=== PATIENT | male | born 1940 | race Hispanic/Latino ===

== ENCOUNTER 2017-03-12 11:04 | Observation (INO) | payer MEDICARE, OTHER ==
--- NOTE | 2017-03-10 12:18 | Anesthesia Consultation ---
Anesthesia Consult and Med Hx Date of service: 03/10/17 - Airway Anesthetic Teeth Evaluation: Good ROM Head & Neck: Adequate Mental/Hyoid Distance: Adequate Mallampati Class: Class II Intubation Access Assessment: Probably Good - Pulmonary Exam CTA: Yes - Cardiac Exam Cardiac Exam: RRR - Pre-Operative Health Status ASA Pre-Surgery Classification: ASA2 Proposed Anesthetic Plan: General - Pulmonary Hx Smoking: No Hx Asthma: No COPD: No Hx Sleep Apnea: No (DWAYNE PRE SCREEN LOW RISK) - Cardiovascular System Hx Hypertension: No Hx Heart Attack/AMI: No - Central Nervous System Hx Seizures: No - Endocrine Hx Renal Disease: No Hx Liver Disease: No Hx Non-Insulin Dependent Diabetes: No - Hematic Hx Sickle Cell Disease: No - Other Systems Hx Cancer: Yes (bladder ca, removed)
[2017-03-10 12:19] LABS: Basophils % (Auto) 1.1 % (0.0-1.8); Eosinophils % (Auto) 1.2 % (0.0-4.3); Hematocrit 44.3 % (35.5-45.6); Mean Corpuscular HGB Conc 34 % (32-34); Mean Corpuscular Hemoglobin 30 pg (28-32); Mean Corpuscular Volume 90 fl (84-94); Platelet Count 191 K/mm3 (140-440); Red Blood Count 4.95 M/mm3 (3.65-5.03); Red Cell Distribution Width 13.5 % (13.2-15.2)
[2017-03-10 12:29] LABS: INR 0.95 (0.87-1.13)
[2017-03-10 12:38] LABS: Alanine Aminotransferase 18 units/L (7-56); Albumin 3.8 g/dL (3.9-5); Albumin/Globulin Ratio 1.2 %; Alkaline Phosphatase 68 units/L (35-129); Anion Gap 16 mmol/L; Blood Urea Nitrogen 11 mg/dL (9-20); Calcium 9.1 mg/dL (8.4-10.2); Carbon Dioxide 24 mmol/L (22-30); Chloride 99.9 mmol/L (98-107); Glucose 176 mg/dL (75-100); Potassium 4.3 mmol/L (3.6-5.0); Sodium 136 mmol/L (137-145)
[~2017-03-12 11:04] MED LIST: ANCEF/STERILE WATER 2 GM/20 ML 2 GM/20 ML SYRINGE IV NR; NACL 0.9% 1000 ML 1,000 ML IV SCH; NACL 0.9% IR ONE; PEPCID IV NR; SORBITOL-MANNITOL IRRIG IR ONE; WATER FOR IRRIG STERILE IR ONE
[2017-03-12] MEDS ORDERED: DIPRIVAN 10 MG/ML IV ONE (12:18)
[2017-03-12] MEDS ORDERED: SUBLIMAZE ONE (12:18)
[2017-03-12] MEDS ORDERED: XYLOCAINE MPF 2% ONE (12:21)
[2017-03-12] MEDS ORDERED: ROBINUL ONE (12:25)
[2017-03-12] MEDS ORDERED: VERSED ONE (12:30)
[2017-03-12] MEDS ORDERED: SORBITOL-MANNITOL IRRIG IR ONE (12:34)
[2017-03-12] MEDS ORDERED: NACL 0.9% IR ONE (12:43)
[2017-03-12] MEDS ORDERED: WATER FOR IRRIG STERILE IR ONE (12:43)
[2017-03-12] MEDS ORDERED: ZOFRAN ONE (13:00)
[2017-03-12] MEDS ORDERED: AMBIEN PO PRN (13:07)
[2017-03-12] MEDS ORDERED: ZOFRAN IV PRN (13:07)
[2017-03-12] MEDS ORDERED: TYLENOL PO PRN (13:07)
[2017-03-12] MEDS ORDERED: PERCOCET 5/325 PO PRN (13:07)
--- NOTE | 2017-03-12 13:17 | Post Operative Note ---
Date of procedure: 03/12/17 Pre-op diagnosis: urinary retention Post-op diagnosis: same Findings: Inflammatory changes with prominent middle lobe prostate Procedure: Operative note Preoperative diagnosis urinary retention large prostate Postoperative diagnosis same with apparent inflammatory polyps Procedure cystoscopy transurethral resection of the prostate Surgeon Dr. Rodriguez anesthesia Gen. Findings as above Procedure This is a gentleman with recurrent urinary retention Patient was brought the operating room placed in the operating table. Following induction of general anesthesia present on the position and prepped and draped in usual sterile fashion. Cystoscopy showed bladder outlet obstruction 1-2+ trabeculated bladder and polypoid area on the right side of the prostatic urethra. The resectoscope was then placed and resection circumferentially was carried out first of the middle lobe and then circumferentially starting on the left left lobe and going to the right lobe. Hemostasis was excellent. Patient received well we used the loop and the ball for hemostasis. Once we were sure that all the chips were evacuated out and that hemostasis was good a three-way 24 Upper [place] catheter was placed . Patient tolerated procedure well Minimal blood loss less than 50-100 mL he was brought to recovery room in stable condition Reese drip draining clear Anesthesia: GETA Surgeon: SANGITA RODRIGUEZ Estimated blood loss: 50-100ml Pathology: list (prostate) Specimen disposition: to lab Condition: stable Disposition: PACU
--- NOTE | 2017-03-12 14:04 | Post Anesthesia Evaluation ---
- Post Anesthesia Evaluation Patient Participated: Yes Airway Patent: Yes Stable Respiratory Function: Yes Temp > 96.8F: Yes Pain Manageable: Yes Adequeate Hydration: Yes Anesthesia Complications: No Block Receding Appropriately: Not Applicable
--- NOTE | 2017-03-12 14:04 | Anesthesia Day of Surgery ---
Anesthesia Day of Surgery - Day of Surgery Patient Examined: Yes Patient H&P Reviewed: Yes Patient is NPO: Yes
[2017-03-12] MEDS: D5W/0.45% NACL/KCL 20 MEQ 20 MEQ/1,000 ML BAG IV SCH ×2 (14:52→22:52)
[2017-03-12] MEDS ORDERED: FLOMAX PO SCH (18:00)
[2017-03-12] MEDS ORDERED: NACL 0.9% 1,000 ML IR ONE (18:02)
[2017-03-12] MEDS: DIABETA PO SCH (19:25)
[2017-03-12] MEDS: NACL 0.9% IR SCH ×2 (21:00→22:53)
[2017-03-12] MEDS: COLACE PO SCH (22:00)
[2017-03-12] MEDS ORDERED: GLYBURIDE 10 MG PO SCH (22:00)
[2017-03-12] MEDS: ANCEF/NS 1 GM/50 ML 1 GM/50 ML BAG IV SCH (22:00)
[2017-03-13] MEDS: NACL 0.9% IR SCH ×2 (00:30→04:03)
[2017-03-13] MEDS: ANCEF/NS 1 GM/50 ML 1 GM/50 ML BAG IV SCH ×2 (04:02→12:07)
--- NOTE | 2017-03-13 07:37 | Admit Criteria Form ---
Admission Criteria Documentation: AMBULATORY SURGERY EXCEPTION CRITERIA Ambulatory Surgery Exception Criteria ( Place 'X' for any and all applicable criteria): Surgery or procedure performed on ambulatory basis may require inpatient stay for[A] ANY ONE of the following(1)(2)(3)(4)(5)(6)(7)(8)(9): [] I. A preoperative situation, condition, or finding that warrants inpatient stay as indicated by ANY ONE of the following: [] a) Inpatient care needed because of severity of a disease or condition rather than the surgery (eg, severe cardiac or respiratory disease, severe infection) (15) (16 ) (17) (18) [] b) Emergent procedure (eg, angioplasty for acute ischemia)(19) [] c) Complex surgical approach or situation as indicated by ANY ONE of the following(3): [] i) Open approach needed instead of usual endoscopic, transcatheter, or other less invasive procedure [] ii) Difficult approach because of previous operation [] iii) Airway monitoring required after open neck procedures(20)(21) [] iv) Large mass requiring unusually extensive dissection [] v) Additional complicating feature requiring inpatient care (eg, drain management)(22(23): [] d) Major surgery in a pt with high anesthetic risk as indicated by ANY ONE of the following (2)(3)(5)(7)(8): [] i) ASA risk class III or higher (severe systemic disease impairing function) [D] [] ii) Advanced age (eg, older than 85 years)(14)(24) [] iii) Symptomatic heart failure(25) [] iv) Symptomatic asthma or COPD(8)(21) [] v) Morbid obesity with hemodynamic or respiratory problems(20)( 21)(26)(27) [] vi) Obstructive sleep apnea(20)(21) [] vii) Former premature infants who are younger than 60 weeks [] viii) High risk for severe postoperative abnormalities (eg, severe postoperative hypocalcemia after parathyroidectomy for severe hyperparathyroidism)(27)( 28) [] ix) Unstable angina(25) [] e) Drug-related risk requiring inpatient stay as indicated by ANY ONE of the following(5)(10)(14)(32)(33) [] i) Procedure requires discontinuing drugs or other therapy (eg , antiarrhythmic medication, antiseizure medication), which necessitates inpatient observation or treatment.(18)(31) [] ii) Major surgery and high risk drug use as indicated by ANY ONE of the following: [] 1) Active abuse of cocaine or similar drug [] 2) Monoamine oxidase inhibitor use [] 3) Other drug identified as posing risk [] f) Inadequate outpatient care situation as indicated by ANY ONE of the following(5)(10)(14)(32)(33) [] i) Patient lives remote from medical facility and procedure has urgent complication potential, and temporary nearby residence cannot be arranged [] ii) Patient will have postprocedure incapacitation and inadequate assistance at home, or alternative level of care cannot be arranged. [] iii) Patient will have long general anesthesia or procedure side effect resolution time, and competent person to stay with patient on first postoperative night at home or alternative level of care cannot be arranged. []iv) Other inadequate outpatient situation that cannot be handled by other means [X] II. A perioperative event, condition, or finding that warrants inpatient stay as indicated by ANY ONE of the following (1)(2)(3): [X] a) Inadequate physiologic recovery: cardiovascular, respiratory, or hemodynamic status not normal or near preoperative baseline(18) [] b) Hemodynamic instability [] c) Patient not alert with near normal or baseline mental status [] d) Temperature not normal or as expected and not appropriate for outpatient treatment of condition [] e) Ambulatory or appropriate activity level status not yet achieved post procedure [E](34)(35)(36) [] f) Operative site not appropriate (eg, unexpected or excessive drainage or bleeding) [] g) Postoperative effects not resolved or adequately managed (eg, significant pain or vomiting not appropriate for outpatient or next level of care)(10)(12) [] h) Complicating features requiring inpatient care as indicated by ANY ONE of the following(37): [] i) Severe complications of procedure (eg, bowel injury, airway compromise, vascular injury,severe hemorrhage) [] ii) Extensive (eg, dissection far beyond usual scope of procedure ) or prolonged (eg, 120 minutes beyond usual) surgery needed requiring inpatient postoperative care [] iii) Conversion to an open or complex procedure that requires inpatient care (eg, open vs laparoscopic cholecystectomy, abdominal vs vaginal hysterectomy)(38) [] iv) Comorbid condition or test result identified during or post procedure that requires inpatient care (7) [] v) Malignant hyperthermia(30) [] vi) Other complicating feature requiring inpatient care(22)(23) Inpatient stay may be needed until ALL of the following are present (1)(2)(3)(4) (5)(6)(10)(14)(33)(40): []a) Physiologic recovery: cardiovascular, respiratory, and hemodynamic status normal or near preoperative baseline []b) Hemodynamic stability []c) Patient alert, with near normal or baseline mental status []d) Temperature appropriate: patient afebrile or temperature appropriate for outpt treatment of condition []e) Activity level appropriate: ambulatory or appropriate activity level post procedure []f) Operative site appropriate as indicated by ALL of the following: []i) Site dry or with expected drainage []ii) Any blood noted is as expected for procedure. []g) Postoperative effects resolved or managed as indicated by ALL of the following: []i) Pain management appropriate for outpatient (or next level of) care(10) []ii) Minimal nausea and vomiting: if present, successfully treated with oral medication(12) []iii) Headache, dizziness, or drowsiness (if present) are mild. []h) Voiding status acceptable as indicated by ANY ONE of the following: []i) Voiding spontaneously []ii) No voiding but instructions given for follow-up in 6 to 8 hours []iii) Urinary catheter in place, and instructions given for follow-up []i) Complicating features requiring inpatient care manageable at a lower level of care(37) []j) Comorbid conditions manageable at a lower level of care(37) The original [employer] content created by [employer] has been revised. The portions of the content which have been revised are identified through the use of italic text or in bold, and [employer] has neither reviewed nor approved the modified material. All other unmodified content is copyright [employer]. Please see references footnoted in the original [employer] edition 2016
[2017-03-13 08:37] VITALS: BP 129/59
[2017-03-13] MEDS ORDERED: INSULIN ISOPHANE SQ SCH (10:00)
[2017-03-13] MEDS: COLACE PO SCH (10:05)
[2017-03-13] MEDS: DIABETA PO SCH (10:05)
--- NOTE | 2017-03-13 12:18 | Progress Note ---
Assessment and Plan Urine clear Du draining well Home today with Du Subjective Date of service: 03/13/17 Principal diagnosis: urinary retention Objective - Constitutional Vitals: Vital Signs - 12hr 03/13/17 03/13/17 03/13/17 01:20 05:55 07:00 Temperature 98.7 F 98.5 F 98.2 F Pulse Rate [ 76 78 79 From Monitor] Respiratory 20 20 18 Rate Blood Pressure 96/52 113/58 129/59 [Right Arm] O2 Sat by Pulse 100 96 96 Oximetry 03/13/17 11:47 Temperature Pulse Rate [ From Monitor] Respiratory Rate Blood Pressure [Right Arm] O2 Sat by Pulse 96 Oximetry General appearance: Present: no acute distress - Neck Neck: supple - Respiratory Respiratory effort: normal Extremities: no ischemia - Gastrointestinal General gastrointestinal: Present: soft, non-tender - Labs CBC & Chem 7: 03/10/17 11:50 03/10/17 11:50 Labs: Abnormal lab results 03/12/17 03/12/17 03/13/17 Range/Units 13:22 18:56 00:24 POC Glucose 168 H 280 H 235 H (70-105)
--- NOTE | 2017-03-13 12:19 | Discharge Summary ---
Short Stay Discharge Plan Activity: other (no straining) Weight Bearing Status: Full Weight Bearing Diet: low fat, low cholesterol, low salt Special Instructions: other (increase fluids) Durable Medical Equipment Needed Upon Discharge: other (teach Du catheter care) Follow up with: JOVANNY CLEVELAND DO [Primary Care Provider] - 7 Days
== END 2017-03-13 14:00 | disposition home or self-care (01) ==
LOC: OR 11:04 → 2B-SURG 13:08
PROVIDERS: ADMIT Urology; ATTEND Urology
DX: N40.1 Benign prostatic hyperplasia with lower urinary tract symptoms (principal); R33.9 Retention of urine, unspecified; Z85.51 Personal history of malignant neoplasm of bladder
CPT/HCPCS: 36415; 52630; 80053; 82962; 85025; 85610; 85730; 86850; 86900; 86901; 88305; 88342; 96365; 96375; A4217; G0378; J0690; J2250; J2405; J2704; J3010; J7030; 88341; J1815

== ENCOUNTER 2017-06-07 15:27 | Inpatient (IN) | payer MEDICARE, OTHER ==
[2017-06-07 15:36] LABS: Basophils % (Auto) 0.3 % (0.0-1.8); Eosinophils % (Auto) 1.2 % (0.0-4.3); Hematocrit 38.5 % (35.5-45.6); Hemoglobin 13.3 gm/dl (11.8-15.2); Mean Corpuscular HGB Conc 34 % (32-34); Mean Corpuscular Hemoglobin 32 pg (28-32); Mean Corpuscular Volume 92 fl (84-94); Platelet Count 128 K/mm3 (140-440); Red Blood Count 4.21 M/mm3 (3.65-5.03); Red Cell Distribution Width 14.7 % (13.2-15.2)
[2017-06-07 15:48] LABS: INR 0.91 (0.87-1.13)
[2017-06-07 15:49] LABS: Partial Thromboplastin Time 24.7 Sec. (24.2-36.6)
[2017-06-07 16:01] LABS: Anion Gap 18 mmol/L; BUN/Creatinine Ratio 22; Blood Urea Nitrogen 33 mg/dL (9-20); Calcium 8.5 mg/dL (8.4-10.2); Carbon Dioxide 24 mmol/L (22-30); Chloride 101.6 mmol/L (98-107); Glucose 197 mg/dL (75-100); Potassium 4.3 mmol/L (3.6-5.0); Sodium 139 mmol/L (137-145)
[2017-06-07] MEDS ORDERED: ZOFRAN ONE (16:01)
[2017-06-07] MEDS ORDERED: MORPHINE ONE (16:01)
[2017-06-07] MEDS ORDERED: KEPPRA 1,000 MG/NS 0.75% 100ML 1,000 MG/100 ML BAG IV ONE ×2 (16:02→17:00)
--- NOTE | 2017-06-07 16:05 | Cat Scan Report ---
FINAL REPORT EXAM: CT HEAD/BRAIN WO CON HISTORY: neuro deficits \T\lt; 6hrs or sx present upon awakening TECHNIQUE: CT of the Head without IV contrast. PRIORS: None currently available. FINDINGS: Large right intraparenchymal hemorrhage measures 35 x 80 mm. Surrounding cytotoxic edema noted. 9.3 mm left midline shift identified. Subarachnoid blood also identified. No subdural component noted. Right basilar cistern is asymmetrical suggesting mild right uncal herniation. Pre pontine and basal cisterns are otherwise patent. Focal encephalomalacia in the left occipital parietal lobe probably related to chronic ischemia. Age appropriate gross-white matter attenuation is noted. There is no calvarial fracture. The temporal bones demonstrate aerated mastoid air cells. The middle ears appear unremarkable. Paranasal sinuses are unremarkable. Globes are intact. IMPRESSION: Large right cerebral intraparenchymal bleed with subarachnoid components. Surrounding cytotoxic edema. Left midline shift. Mild right uncal herniation. June 07, 2017 at 1302 PDT: I discussed findings over the phone with Dr. Munoz.
--- NOTE | 2017-06-07 16:17 | Emergency Department Report ---
ED Neuro Deficit HPI - General Stated Complaint: POSS STROKE Time Seen by Provider: 06/07/17 15:59 - History of Present Illness Initial Comments: Patient came in as a code stroke. This occurred approximately a half hours prior to EMS arrival. Apparently the patient was in the bathtub on the same confused and disoriented. He was transported to this facility and paramedics noted that he was not moving his left side. He was initially seen at the door by another physician who was at the end of this shift. I saw him when he was returning from CT. I reviewed the patient's CT which showed he had a huge right -sided anterior cerebral hemorrhage with edema and midline shift. I spoke to the patient's concerning the patient's wishes should he have a probably terminal event such as this. She stated that he has a lot of medical problems to include invasive bladder cancer status post chemotherapy. He is not currently on a blood thinner. He is also diabetic. She states that he would not want aggressive care in this circumstance. She demonstrated very good understanding of his hemorrhagic stroke and the likelihood as I explained of green herniation. She did sign and allow natural was performed. I spoke to the fire warden, Dr. Rivero. He did concur with the AND performed. He did speak to the . At this time he is assisting in the care and management of the patient. I gave an order to the nurse to give the patient 2 mg of morphine and 8 of Zofran and a gram of Keppra. -: Gradual Location: speech, left arm, left leg Presenting Symptoms: Present: Weak/Paralyzed One Side (deterioration), Facial Droop/Numbness History of same: No Place: home Severity: severe Quality: weak Improves With: none Worsens With: none On Anticoagulants: No Context: sudden onset Associated Symptoms: other (patient is aphasic) Treatments Prior to Arrival: none - Related Data Home Medications: Home Medications Medication Instructions Recorded Confirmed Last Taken NovoLIN N 26 units SQ DAILY 10/01/15 03/12/17 03/11/17 07:00 glyBURIDE 10 mg PO BID 10/01/15 03/12/17 03/11/17 Guaifenesin/Phenylephrine HCl 1 tab PO PRN PRN 03/06/17 03/12/17 03/11/17 [Fenesin PE Ir Tablet] Multivit-Mins/Iron/Folic/Lycop 1 each PO DAILY 03/06/17 03/12/17 03/11/17 [Centrum Men's Tablet] Ulman-3 Fatty Acids/Fish Oil [Fish 1,000 mg PO DAILY 03/06/17 03/12/17 03/11/17 Oil] diphenhydrAMINE [Benadryl CAP] 25 mg PO PRN PRN 03/06/17 03/06/17 Unknown Allergies/Adverse Reactions: Allergies Allergy/AdvReac Type Severity Reaction Status Date / Time simvastatin [From Zocor] Allergy Severe Itching Verified 02/08/17 06:39 alfuzosin HCl Allergy Vomiting Verified 03/06/17 09:20 [From Uroxatral] colesevelam HCl Allergy Nausea Verified 02/08/17 06:39 [From WelChol] feathers Allergy Unknown Verified 02/08/17 06:39 grass pollen Allergy Itching Verified 02/08/17 06:39 lisinopril [From Prinivil] Allergy Hives Verified 03/06/17 09:20 losartan potassium Allergy Unknown Verified 02/08/17 06:39 [From Cozaar] metformin Allergy Hives Verified 10/01/15 00:20 pioglitazone HCl [From Actos] Allergy Nausea Verified 02/08/17 06:39 prednisone Allergy Unknown Verified 02/08/17 06:39 sulfamethoxazole Allergy Hives Verified 02/08/17 09:17 [From Bactrim] trimethoprim [From Bactrim] Allergy Hives Verified 02/08/17 09:17 elm Allergy Itching Uncoded 02/08/17 06:39 oak Allergy Itching Uncoded 02/08/17 06:39 ED Review of Systems ROS: Stated complaint: POSS STROKE Other details as noted in HPI Comment: Unobtainable due to pts medical conditions ED Past Medical Hx - Past Medical History Hx Hypertension: No Hx CVA: No Hx Heart Attack/AMI: No Hx Congestive Heart Failure: No Hx Diabetes: Yes Hx Deep Vein Thrombosis: No Hx Pulmonary Embolism: No Hx GERD: No Hx Liver Disease: No Hx Renal Disease: No Hx Sickle Cell Disease: No Hx Arthritis: No Hx Headaches / Migraines: No Hx Seizures: No Hx Kidney Stones: No Hx Psychiatric Treatment: No Hx Asthma: No Hx COPD: No Hx Tuberculosis: No Hx Dementia: No Hx HIV: No Additional medical history: Bladder CA, Polyp; urethral stricture. comes w leg bag farias. - Surgical History Additional Surgical History: Nasal Septum. Eyes - Cataracts - Social History Smoking Status: Never Smoker Substance Use Type: None - Medications Home Medications: Home Medications Medication Instructions Recorded Confirmed Last Taken Type NovoLIN N 26 units SQ DAILY 10/01/15 03/12/17 03/11/17 07:00 History glyBURIDE 10 mg PO BID 10/01/15 03/12/17 03/11/17 History Guaifenesin/Phenylephrine HCl 1 tab PO PRN PRN 03/06/17 03/12/17 03/11/17 History [Fenesin PE Ir Tablet] Multivit-Mins/Iron/Folic/Lycop 1 each PO DAILY 03/06/17 03/12/17 03/11/17 History [Centrum Men's Tablet] Ulman-3 Fatty Acids/Fish Oil [Fish 1,000 mg PO DAILY 03/06/17 03/12/17 03/11/17 History Oil] diphenhydrAMINE [Benadryl CAP] 25 mg PO PRN PRN 03/06/17 03/06/17 Unknown History ED Neuro Physical Exam - General Limitations: Altered Mental Status General appearance: lethargic Suspected Stroke: Yes - Head Head exam: Present: atraumatic - Eye Eye exam: Absent: PERRL, EOMI, scleral icterus Pupils: Present: miosis (miotic pupils are poorly reactive if at all) - ENT ENT exam: Present: normal exam - Neck Neck exam: Present: normal inspection. Absent: tenderness, meningismus - Respiratory Respiratory exam: Present: rhonchi (scattered rhonchi), other (increased work of breathing) - Cardiovascular Cardiovascular Exam: Present: regular rate, normal rhythm. Absent: systolic murmur, diastolic murmur, rubs, gallop - GI/Abdominal GI/Abdominal exam: Present: soft, normal bowel sounds. Absent: distended, tenderness, guarding, rebound - Extremities Exam Extremities exam: Present: normal inspection - Back Exam Back exam: Present: other (did not examine) - Neurological Exam Neurological exam: Present: CN II-XII intact (left facial paresis), motor sensory deficit (left hemiplegia), other (obtunded patient) - NIHSS Assessment Interval: Baseline 1a. Level of Consciousness: responds reflex/autonomic 1b. LOC Questions: answers no questions correctly 1c. LOC Commands: performs no tasks correctly 2. Best Gaze: normal 3. Visual: no visual loss 4. Facial Palsy: partial paralysis 5b. Motor Arm Right: no drift 5a. Motor Arm Left: no movement 6a. Motor Leg Left: no movement (some clonus noted) 6b. Motor Leg Right: no drift 7. Limb Ataxia: absent 8. Sensory: severe/total sensory loss 9. Best Language: mute/global aphasia 10. Dysarthria: severe dysarthria 11. Extinction/Inattention: profound inattention - Psychiatric Psychiatric exam: Present: other (mute) - Skin Skin exam: Present: warm, dry, intact, normal color. Absent: rash ED Course - Reevaluation(s) Reevaluation #1: As above discussed the patient's status with the . Other family en route. Dr. Rodas advised of the patient's status. Further care per Dr. Rodas. 06/07/17 16:23 Reevaluation #2: Patient is given Keppra, morphine, Zofran. He will not be intubated and respect of his underlying pathology and the wishes of his family. He will be exploring the possibility of hospice placement. 06/07/17 16:26 - Lab Data Result diagrams: 06/07/17 15:30 06/07/17 15:30 Lab Results 06/07/17 06/07/17 06/07/17 Range/Units 15:30 15:30 15:30 WBC 13.0 H (4.5-11.0) K/mm3 RBC 4.21 (3.65-5.03) M/mm3 Hgb 13.3 (11.8-15.2) gm/dl Hct 38.5 (35.5-45.6) % MCV 92 (84-94) fl MCH 32 (28-32) pg MCHC 34 (32-34) % RDW 14.7 (13.2-15.2) % Plt Count 128 L (140-440) K/mm3 Lymph % (Auto) 16.3 (13.4-35.0) % [place] % (Auto) 1.1 (0.0-7.3) % Eos % (Auto) 1.2 (0.0-4.3) % Baso % (Auto) 0.3 (0.0-1.8) % Lymph # 2.1 (1.2-5.4) K/mm3 [place] # 0.1 (0.0-0.8) K/mm3 Eos # 0.2 (0.0-0.4) K/mm3 Baso # 0.0 (0.0-0.1) K/mm3 Seg Neutrophils % 81.1 H (40.0-70.0) % Seg Neutrophils # 10.5 H (1.8-7.7) K/mm3 PT 12.7 (12.2-14.9) Sec. INR 0.91 (0.87-1.13) APTT 24.7 (24.2-36.6) Sec. Thrombin Time (15.1-19.6) Sec. Sodium 139 (137-145) mmol/L Potassium 4.3 (3.6-5.0) mmol/L Chloride 101.6 (98-107) mmol/L Carbon Dioxide 24 (22-30) mmol/L Anion Gap 18 mmol/L BUN 33 H (9-20) mg/dL Creatinine 1.5 (0.8-1.5) mg/dL Estimated GFR 46 ml/min BUN/Creatinine Ratio 22 % Glucose 197 H (75-100) mg/dL Calcium 8.5 (8.4-10.2) mg/dL Troponin T < 0.010 (0.00-0.029) ng/mL 06/07/17 Range/Units 15:30 WBC (4.5-11.0) K/mm3 RBC (3.65-5.03) M/mm3 Hgb (11.8-15.2) gm/dl Hct (35.5-45.6) % MCV (84-94) fl MCH (28-32) pg MCHC (32-34) % RDW (13.2-15.2) % Plt Count (140-440) K/mm3 Lymph % (Auto) (13.4-35.0) % [place] % (Auto) (0.0-7.3) % Eos % (Auto) (0.0-4.3) % Baso % (Auto) (0.0-1.8) % Lymph # (1.2-5.4) K/mm3 [place] # (0.0-0.8) K/mm3 Eos # (0.0-0.4) K/mm3 Baso # (0.0-0.1) K/mm3 Seg Neutrophils % (40.0-70.0) % Seg Neutrophils # (1.8-7.7) K/mm3 PT (12.2-14.9) Sec. INR (0.87-1.13) APTT (24.2-36.6) Sec. Thrombin Time 16.1 (15.1-19.6) Sec. Sodium (137-145) mmol/L Potassium (3.6-5.0) mmol/L Chloride (98-107) mmol/L Carbon Dioxide (22-30) mmol/L Anion Gap mmol/L BUN (9-20) mg/dL Creatinine (0.8-1.5) mg/dL Estimated GFR ml/min BUN/Creatinine Ratio % Glucose (75-100) mg/dL Calcium (8.4-10.2) mg/dL Troponin T (0.00-0.029) ng/mL - EKG Data -: EKG Interpreted by [facility] EKG shows normal: sinus rhythm Rate: normal Interpretation: other (diffuse repolarization abnormality increased QTC. Possibly indicative of cerebral hemorrhage) Critical Care Time: Yes Critical care time in (mins) excluding proc time.: 55 Critical care attestation.: If time is entered above; I have spent that time in minutes in the direct care of this critically ill patient, excluding procedure time. ED Disposition Clinical Impression: Brain herniation Intracerebral hemorrhage Qualifiers: Intracerebral hemorrhage etiology: nontraumatic Cerebral hemorrhage location: cerebral hemisphere, subcortical portion Laterality: right Qualified Code(s): I61.0 - Nontraumatic intracerebral hemorrhage in hemisphere, subcortical Disposition: DC-09 OP ADMIT IP TO THIS HOSP Is pt being admited?: Yes Does the pt Need Aspirin: No Condition: Stable Time of Disposition: 16:26
--- NOTE | 2017-06-07 16:18 | Cat Scan Report ---
FINAL REPORT EXAM: CT CERVICAL SPINE WO CON HISTORY: fall TECHNIQUE: CT of the Cervical Spine without IV contrast. Coronal and sagittal reformatted images were provided. PRIORS: None currently available. FINDINGS: There is no fracture. There is no subluxation. There is no atlantooccipital dislocation. Occipitiocervical joint is intact. C1-C2: [id number] arthrosis. Mild basilar invagination with blunted clival tip and tip of the dens. Mild prominence of the transverse ligament. Mild spinal canal narrowing. Dusm-di-psgjohpf degenerative discs at C4-T1. Mild spinal canal narrowing. No severe spinal canal stenosis. Some neural foraminal narrowing. Remaining cervical levels do not demonstrate significant canal or foraminal narrowing. Prevertebral soft tissue structures are unremarkable. IMPRESSION: No acute fracture. Degenerative discs. C1-C2 arthrosis.
[2017-06-07] MEDS ORDERED: ZOFRAN IV ONE (16:21)
[2017-06-07] MEDS ORDERED: MORPHINE IV ONE ×2 (16:21→17:08)
--- NOTE | 2017-06-07 16:31 | Consultation ---
History of Present Illness Consult date: 06/07/17 Requesting physician: ISABEL GERMAIN Reason for consult: other (Acute Respiratory Failure; Acute CVA) History of present illness: PULMONARY/CCM CONSULT NOTE (Full dictation # [id number]) Please see dictated notes for full details ...35' CCT without overlap Medications and Allergies Allergies Allergy/AdvReac Type Severity Reaction Status Date / Time simvastatin [From Zocor] Allergy Severe Itching Verified 02/08/17 06:39 alfuzosin HCl Allergy Vomiting Verified 03/06/17 09:20 [From Uroxatral] colesevelam HCl Allergy Nausea Verified 02/08/17 06:39 [From WelChol] feathers Allergy Unknown Verified 02/08/17 06:39 grass pollen Allergy Itching Verified 02/08/17 06:39 lisinopril [From Prinivil] Allergy Hives Verified 03/06/17 09:20 losartan potassium Allergy Unknown Verified 02/08/17 06:39 [From Cozaar] metformin Allergy Hives Verified 10/01/15 00:20 pioglitazone HCl [From Actos] Allergy Nausea Verified 02/08/17 06:39 prednisone Allergy Unknown Verified 02/08/17 06:39 sulfamethoxazole Allergy Hives Verified 02/08/17 09:17 [From Bactrim] trimethoprim [From Bactrim] Allergy Hives Verified 02/08/17 09:17 elm Allergy Itching Uncoded 02/08/17 06:39 oak Allergy Itching Uncoded 02/08/17 06:39 Home Medications Medication Instructions Recorded Confirmed Last Taken Type NovoLIN N 26 units SQ DAILY 10/01/15 03/12/17 03/11/17 07:00 History glyBURIDE 10 mg PO BID 10/01/15 03/12/17 03/11/17 History Guaifenesin/Phenylephrine HCl 1 tab PO PRN PRN 03/06/17 03/12/17 03/11/17 History [Fenesin PE Ir Tablet] Multivit-Mins/Iron/Folic/Lycop 1 each PO DAILY 03/06/17 03/12/17 03/11/17 History [Centrum Men's Tablet] [place]-3 Fatty Acids/Fish Oil [Fish 1,000 mg PO DAILY 03/06/17 03/12/17 03/11/17 History Oil] diphenhydrAMINE [Benadryl CAP] 25 mg PO PRN PRN 03/06/17 03/06/17 Unknown History Active Meds: Active Medications Levetiracetam (Keppra 1,000 Mg/Ns 0.75% 100ml) 1,000 mg in 100 mls @ 363.636 mls/hr IV ONCE ONE Stop: 06/07/17 17:16 Physical Examination Vital signs: Vital Signs Pulse Resp BP Pulse Ox 85 31 H 183/103 92 06/07/17 16:07 06/07/17 16:07 06/07/17 16:07 06/07/17 16:07 Results - Laboratory Findings CBC and BMP: 06/07/17 15:30 06/07/17 15:30 PT/INR, D-dimer PT 12.7 Sec. (12.2-14.9) 06/07/17 15:30 INR 0.91 (0.87-1.13) 06/07/17 15:30 Abnormal lab findings: Abnormal Labs 06/07/17 06/07/17 15:30 15:30 WBC 13.0 H Plt Count 128 L Seg Neutrophils % 81.1 H Seg Neutrophils # 10.5 H BUN 33 H Glucose 197 H
[2017-06-07 17:12] LABS: ABG Base Excess -3.5 mmol/L (-2.0-3.0); ABG HCO3 21.8 mmol/L (20.0-26.0); ABG Oxygen Saturation 99.2 % (95.0-99.0); ABG PCO2 40.2 mm Hg; ABG PH 7.352 pH Units (7.350-7.450); ABG PO2 188.2 mm Hg (80.0-90.0)
--- NOTE | 2017-06-07 18:19 | History and Physical Report ---
History of Present Illness Date of examination: 06/07/17 Date of admission: 06/07/2017 Chief complaint: Chief complaint: Acute onset of severe confusion while in bathtub on hour prior to admission to emergency room History of present illness: 76-year-old male with past medical history for bladder cancer and insulin-dependent diabetes was in the bathtub when he became acutely confused and was unable to get up and walk. He called his who called the paramedics as a 911 call. Patient was apparently not moving his left side. Patient was also short of breath. Patient is on chemotherapy for bladder cancer currently not on any blood thinners. Acutely confused and not able to move his left side. Shortness of breath and hypoxia present at the time of admission to emergency room. Emergent CAT scan was done of the head which showed hemorrhagic stroke with possible brain herniation. Review of System: Constitutional: no fever, no chills, no weight loss Ears, eyes, nose, mouth and throat: no nasal congestion, no nasal discharge, no sinus pressure, no vision change, no red eye. Neck: No neck pain or rigidity. Cardiovascular: No chest pain, no orthopnea, no palpitations, no leg swelling Respiratory: No shortness of breath, no cough, no congestion, no wheezing Gastrointestinal: no abdominal pain, no nausea, no vomiting Genitourinary : no dysuria, no hematuria Musculoskeletal: no joint swelling or muscle ache Integumentary: no rash, no pruritis Neurological: As in HPI. Left-sided weakness present. Acutely altered mental status. Endocrine: no cold or heat intolerance, no polyuria or polydipsia Hematologic/Lymphatic: no easy bruising, no easy bleeding, no gland swelling Allergic/Immunologic: no urticaria, no angioedema. Past History Past Medical History: cancer (bladder cancer on chemotherapy), diabetes, hypertension, hyperlipidemia, stroke Past Surgical History: Other (not available) Social history: , lives with family, AND/DNR-allow natural Family history: hypertension Medications and Allergies Allergies Allergy/AdvReac Type Severity Reaction Status Date / Time simvastatin [From Zocor] Allergy Severe Itching Verified 02/08/17 06:39 alfuzosin HCl Allergy Vomiting Verified 03/06/17 09:20 [From Uroxatral] colesevelam HCl Allergy Nausea Verified 02/08/17 06:39 [From WelChol] feathers Allergy Unknown Verified 02/08/17 06:39 grass pollen Allergy Itching Verified 02/08/17 06:39 lisinopril [From Prinivil] Allergy Hives Verified 03/06/17 09:20 losartan potassium Allergy Unknown Verified 02/08/17 06:39 [From Cozaar] metformin Allergy Hives Verified 10/01/15 00:20 pioglitazone HCl [From Actos] Allergy Nausea Verified 02/08/17 06:39 prednisone Allergy Unknown Verified 02/08/17 06:39 sulfamethoxazole Allergy Hives Verified 02/08/17 09:17 [From Bactrim] trimethoprim [From Bactrim] Allergy Hives Verified 02/08/17 09:17 elm Allergy Itching Uncoded 02/08/17 06:39 oak Allergy Itching Uncoded 02/08/17 06:39 Home Medications Medication Instructions Recorded Confirmed Last Taken Type NovoLIN N 26 units SQ DAILY 10/01/15 03/12/17 03/11/17 07:00 History glyBURIDE 10 mg PO BID 10/01/15 03/12/17 03/11/17 History Guaifenesin/Phenylephrine HCl 1 tab PO PRN PRN 03/06/17 03/12/17 03/11/17 History [Fenesin PE Ir Tablet] Multivit-Mins/Iron/Folic/Lycop 1 each PO DAILY 03/06/17 03/12/17 03/11/17 History [Centrum Men's Tablet] [place]-3 Fatty Acids/Fish Oil [Fish 1,000 mg PO DAILY 03/06/17 03/12/17 03/11/17 History Oil] diphenhydrAMINE [Benadryl CAP] 25 mg PO PRN PRN 03/06/17 03/06/17 Unknown History Exam - Physical Exam Narrative exam: Patient totally confused and lethargic. Tachypneic. Wheezing. - Constitutional Vitals: Temp Pulse Resp BP Pulse Ox 95.2 F L 93 H 23 169/82 97 06/07/17 16:33 06/07/17 16:37 06/07/17 16:37 06/07/17 16:37 06/07/17 16:37 General appearance: Present: severe distress, well-nourished - EENT Eyes: Present: irregular pupil (sluggish pupils) ENT: hearing intact, clear oral mucosa - Neck Neck: Present: supple, normal ROM - Respiratory Respiratory effort: normal Respiratory: bilateral: CTA, rhonchi (bilateral) - Cardiovascular Heart rate: 96 Rhythm: regular Heart Sounds: Present: S1 & S2. Absent: rub, click - Extremities Extremities: no ischemia, pulses intact, pulses symmetrical, No edema Peripheral Pulses: within normal limits - Abdominal General gastrointestinal: Present: soft, non-tender, non-distended, normal bowel sounds Male genitourinary: Present: normal - Integumentary Integumentary: Present: clear, warm, dry - Musculoskeletal Musculoskeletal: left sided weakness, generalized weakness - Psychiatric Psychiatric: agitated, other (acutely confused) - Neurologic Neurologic: CNII-XII intact, focal deficits (left-sided weakness.), other ( acutely confused and lethargic. Comatose.) - Allied Health Allied health notes reviewed: nursing, case management Results - Labs CBC & Chem 7: 06/07/17 15:30 06/07/17 15:30 Labs: Laboratory Last Values WBC 13.0 K/mm3 (4.5-11.0) H 06/07/17 15:30 RBC 4.21 M/mm3 (3.65-5.03) 06/07/17 15:30 Hgb 13.3 gm/dl (11.8-15.2) 06/07/17 15:30 Hct 38.5 % (35.5-45.6) 06/07/17 15:30 MCV 92 fl (84-94) 06/07/17 15:30 MCH 32 pg (28-32) 06/07/17 15:30 MCHC 34 % (32-34) 06/07/17 15:30 RDW 14.7 % (13.2-15.2) 06/07/17 15:30 Plt Count 128 K/mm3 (140-440) L 06/07/17 15:30 Lymph % (Auto) 16.3 % (13.4-35.0) 06/07/17 15:30 [place] % (Auto) 1.1 % (0.0-7.3) 06/07/17 15:30 Eos % (Auto) 1.2 % (0.0-4.3) 06/07/17 15:30 Baso % (Auto) 0.3 % (0.0-1.8) 06/07/17 15:30 Lymph # 2.1 K/mm3 (1.2-5.4) 06/07/17 15:30 [place] # 0.1 K/mm3 (0.0-0.8) 06/07/17 15:30 Eos # 0.2 K/mm3 (0.0-0.4) 06/07/17 15:30 Baso # 0.0 K/mm3 (0.0-0.1) 06/07/17 15:30 Seg Neutrophils % 81.1 % (40.0-70.0) H 06/07/17 15:30 Seg Neutrophils # 10.5 K/mm3 (1.8-7.7) H 06/07/17 15:30 PT 12.7 Sec. (12.2-14.9) 06/07/17 15:30 INR 0.91 (0.87-1.13) 06/07/17 15:30 APTT 24.7 Sec. (24.2-36.6) 06/07/17 15:30 Thrombin Time 16.1 Sec. (15.1-19.6) 06/07/17 15:30 ABG pH 7.352 pH Units (7.350-7.450) 06/07/17 16:35 ABG pCO2 40.2 mm Hg 06/07/17 16:35 ABG pO2 188.2 mm Hg (80.0-90.0) H 06/07/17 16:35 ABG HCO3 21.8 mmol/L (20.0-26.0) 06/07/17 16:35 ABG O2 Saturation 99.2 % (95.0-99.0) H 06/07/17 16:35 ABG O2 Content 20.3 (0.0-44) 06/07/17 16:35 ABG Base Excess -3.5 mmol/L (-2.0-3.0) L 06/07/17 16:35 ABG Hemoglobin 14.6 gm/dl (14.0-18.0) 06/07/17 16:35 ABG Carboxyhemoglobin 1.6 % (0.0-5.0) 06/07/17 16:35 ABG Methemoglobin 0.5 % (0.0-1.5) 06/07/17 16:35 Oxyhemoglobin 97.0 % (95.0-99.0) 06/07/17 16:35 FiO2 50 % 06/07/17 16:35 Sodium 139 mmol/L (137-145) 06/07/17 15:30 Potassium 4.3 mmol/L (3.6-5.0) 06/07/17 15:30 Chloride 101.6 mmol/L (98-107) 06/07/17 15:30 Carbon Dioxide 24 mmol/L (22-30) 06/07/17 15:30 Anion Gap 18 mmol/L 06/07/17 15:30 BUN 33 mg/dL (9-20) H 06/07/17 15:30 Creatinine 1.5 mg/dL (0.8-1.5) 06/07/17 15:30 Estimated GFR 46 ml/min 06/07/17 15:30 BUN/Creatinine Ratio 22 % 06/07/17 15:30 Glucose 197 mg/dL (75-100) H 06/07/17 15:30 Calcium 8.5 mg/dL (8.4-10.2) 06/07/17 15:30 Troponin T < 0.010 ng/mL (0.00-0.029) 06/07/17 15:30 Short CBC 06/07/17 Range/Units 15:30 WBC 13.0 H (4.5-11.0) K/mm3 Hgb 13.3 (11.8-15.2) gm/dl Hct 38.5 (35.5-45.6) % Plt Count 128 L (140-440) K/mm3 BMP 06/07/17 15:30 Sodium 139 Potassium 4.3 Chloride 101.6 Carbon Dioxide 24 BUN 33 H Creatinine 1.5 Glucose 197 H Calcium 8.5 Cardiac Enzymes 06/07/17 Range/Units 15:30 Troponin T < 0.010 (0.00-0.029) ng/mL - Imaging and Cardiology EKG: report reviewed CT Scan - head: report reviewed (large right cerebral intraparenchymal bleed with subarachnoid components surrounding cytotoxic edema. Left midline shift. Mild right uncal herniation. 3.5 cm 8 cm hemorrhage.) Assessment and Plan Advance Directives: Yes (AND) VTE prophylaxis?: Mechanical Plan of care discussed with patient/family: Yes - Patient Problems (1) Intracerebral hemorrhage Current Visit: Yes Status: Acute Qualifiers: Intracerebral hemorrhage etiology: nontraumatic Cerebral hemorrhage location: cerebral hemisphere, subcortical portion Encounter type: E Laterality: right Loss of consciousness presence/duration: L Qualified Code( s): I61.0 - Nontraumatic intracerebral hemorrhage in hemisphere, subcortical Plan to address problem: Patient has a massive intracerebral bleed measuring 3.5 cm 8 cm with the left midline shift and uncle herniation. Prognosis is very poor. Supportive care. wants DO NOT RESUSCITATE and hospice care. (2) Acute respiratory failure Current Visit: Yes Status: Acute Qualifiers: Respiratory failure complication: hypoxia Qualified Code(s): J96.01 - Acute respiratory failure with hypoxia Plan to address problem: Patient initiated on BiPAP. wants BiPAP to keep him comfortable (3) Acute encephalopathy Current Visit: Yes Status: Acute Plan to address problem: Acute encephalopathy secondary to a massive bleed. Supportive care. Prognosis is very guarded. informed. (4) IDDM (insulin dependent diabetes mellitus) Current Visit: Yes Status: Chronic (5) Bladder cancer Current Visit: Yes Status: Chronic Qualifiers: Bladder location: unspecified site Qualified Code(s): C67.9 - Malignant neoplasm of bladder, unspecified Plan to address problem: Patient's prognosis is very poor. No more chemotherapy. Patient has Du catheter. (6) End of life care Current Visit: Yes Status: Acute Plan to address problem: Had a detailed discussion with the who is at bedside. is agreeable to allowing natural and hospice care. Wanted him to be made comfortable. (7) DVT prophylaxis Current Visit: Yes Status: Acute Plan to address problem: SCDs only
[2017-06-07] MEDS ORDERED: DILAUDID IV PRN (18:20)
[2017-06-07] MEDS ORDERED: ZOFRAN IV PRN (18:20)
[2017-06-07] MEDS ORDERED: DULCOLAX PR PRN (18:20)
[2017-06-07] MEDS ORDERED: TYLENOL PO PRN (18:20)
[2017-06-07] MEDS ORDERED: MILK OF MAGNESIA PO PRN (18:20)
[2017-06-07] MEDS ORDERED: D5NS 1,000 ML IV SCH (19:00)
[2017-06-07 22:07] VITALS: BP 156/81
--- NOTE | 2017-06-07 23:31 | Consultation ---
PULMONARY CRITICAL CARE EVALUATION CONSULTING PHYSICIAN: John Munoz MD REASON FOR CONSULTATION: Acute CVA, altered mental status, respiratory distress. CHIEF COMPLAINT AND HISTORY OF PRESENT ILLNESS: The patient is a 76-year-old male with past medical history as far as he can tell significant for diabetes, possibly for hypertension as the patient is on antihypertensives at home. His could not really tell me. Earlier today, he went into the bathroom, she did not hear him come out. She went in after about 15 minutes, found him rocking. He did not fall. She knew something was wrong. She called 911. He was brought into the ER. CT scan reveals a large right-sided intracranial hemorrhage. She denies vomiting or overt aspiration. She denies prior symptoms of altered mental status. He is not a current smoker. When I stopped by to see him, he was on the ER bed, breathing was labored. He was able to move the left side. He was in obvious moderate respiratory distress. She denies seizures. That is as much of the history of presentation as I have. PAST MEDICAL HISTORY: He is obese. He is diabetic. He has a history of bladder cancer. PAST SURGICAL HISTORY: He has had some nasal surgery. MEDICATIONS: He was on at home according to the medication administration record that we have over here includes the following: He is on insulin at home, Novolin N. He is on glyburide 10 mg b.i.d. He is on [place] fatty 3 acids. ALLERGIES: Simvastatin, alfuzosin, and I believe there is also reported allergy to lisinopril. DIET: Obese gentleman. She denies significant weight loss or gain in the preceding few weeks to months. FAMILY AND SOCIAL HISTORY: Lives in the community. He is . His is in the room. They deny alcohol, tobacco, or illicit drug use or abuse. Family history is otherwise noncontributory. REVIEW OF SYSTEMS: He had altered mental status. No seizures. Constitutionally, he was labored. He is unable to participate in the review of systems otherwise. denies gross hematochezia or melena. She denied any prior history of seizure disorder. No prior history of throat pain. No cough. No orthopnea. She denied any nausea or vomiting. She denied any new rash on his body. She denies any history of anxiety, depression, other psychiatric disorder. Denies easy bruising, easy bleeding. REVIEW OF SYSTEMS: A 13 systems was attempted to obtain as in body of the history above or noncontributory. PHYSICAL EXAMINATION: VITAL SIGNS: At presentation in the Emergency Room revealed vital signs, he was hypothermic, temperature 95.2 degrees Fahrenheit rectally, pulse 101, respiratory rate was 33, blood pressure 157/78, oxygen sats 91%, inspired oxygen concentration was not recorded at that time. HEENT: Examination of the head, eyes, ears, nose, and throat: Pupils equal, round, about 3-4 mm, reactive to light. Extraocular muscle movements could not be assessed. Oropharynx was moist. He had mild frothy secretions on the right side of the mouth. No thyromegaly, no jugular venous distention, no palpable lymph nodes in the supraclavicular or submandibular lymph node chains. LUNGS: Auscultation of both lung silver revealed diminished breath sounds and referred upper airway sounds from his snoring. HEART: Sounds 1 and 2 are heard. They were regular in rate and rhythm at the time of my evaluation. No significant pedal edema. ABDOMEN: Soft, full, bowel sounds are positive. No obvious hepatosplenomegaly. Did not appear tender. EXTREMITIES: Without digital clubbing or cyanosis. He had bilateral palpable pedal pulses. NEUROLOGIC: He had left-sided weakness. Babinski sign was upgoing in the left lower extremity. He had no active seizures at the time I saw him. SKIN: Some chronic venous stasis changes in the lower extremities. Otherwise, normal skin turgor. LABORATORY DATA: White cell count 13,000, hemoglobin 13.3, hematocrit 38.5, platelet count 128. INR 0.91. Serum sodium 139, potassium 4.3, chloride 102, bicarbonate 24, BUN 33, creatinine 1.5, glucose was 197. Troponin was within normal limits. He has been cultured. Blood cultures and urine cultures are pending. Radiographic studies have been reviewed. I have also reviewed the radiologist's interpretation and I do agree with it. Main finding on the CT of the head is a large right-sided intracerebral hemorrhage with subarachnoid bleed also. There is midline shift to the left and some mild right uncal herniation. CT of the spine was reported as not revealing any fractures. ASSESSMENT AND PLAN: We have an elderly gentleman whose understands the gravity of the situation and has decided to make him a do not resuscitate. In the meantime, she wants us to support him as best as we can. She has now made a decision with regards to going with palliative care and just comfortable care okay. Only from a respiratory standpoint, I will put him on bilevel positive air pressure ventilation therapy to support ventilation and keep the upper airway open. Aspiration precautions will be maintained. Bronchodilators will be on a p.r.n. basis. Oxygen will be titrated to keep sats greater than or equal to about 92-94%. From a cardiovascular standpoint, we will continue to monitor his blood pressures. We will allow some permissive hypertension in the short term. Initial troponins are unremarkable. Cardiology consultation will be at the behest of the attending. If the family decides to go that route from a GI and nutritional standpoint, he will remain n.p.o. for now. We will put him on GI prophylaxis, especially with him going on positive pressure ventilation. Otherwise, we will maintain aspiration precautions. From an infectious disease standpoint, really no signs and symptoms of significant sepsis. I will follow him off antibiotics. He has been pancultured. From a GI and nutritional standpoint as above he will be n.p.o. from now. From a renal standpoint, no major electrolyte abnormalities. Inputs and outputs will be monitored. Electrolytes will be corrected as necessary. From a ACOUSTIC INTELLIGENCE SPECIALIST standpoint, Emergency Room physician, I believe has discussed with Neurosurgery and we will follow their recommendations keeping in light of the family's wishes. From a general and hospital healthcare maintenance standpoint, he is going to be on GI prophylaxis, DVT prophylaxis will be in the form of SCDs. Flu and pneumonia vaccination will be per protocol. Thank you very much for the consult. We will follow along and make further recommendations as picture progresses/becomes clearer. JOB# [id number] KIMMIE/KAELYN
[2017-06-08] MEDS ORDERED: NOVOLOG SUB-Q SCH
== END 2017-06-08 07:13 | DRG 64 ==
LOC: ED 15:27 → 3A 18:20
PROVIDERS: ADMIT Internal Medicine; ATTEND Internal Medicine
PROC: 4A033R1 Measurement of Arterial Saturation, Peripheral, Percutaneous Approach (ICD-10-PCS; principal; 2017-06-07)
PROC: 5A09357 Assistance with Respiratory Ventilation, Less than 24 Consecutive Hours, Continuous Positive Airway Pressure (ICD-10-PCS; 2017-06-07)
DX: I61.9 Nontraumatic intracerebral hemorrhage, unspecified (principal); G93.5 Compression of brain; J96.01 Acute respiratory failure with hypoxia; G93.40 Encephalopathy, unspecified; G81.94 Hemiplegia, unspecified affecting left nondominant side; E11.9 Type 2 diabetes mellitus without complications; I10 Essential (primary) hypertension; Z51.5 Encounter for palliative care; Z79.899 Other long term (current) drug therapy; Z88.2 Allergy status to sulfonamides; Z85.51 Personal history of malignant neoplasm of bladder; Z79.4 Long term (current) use of insulin; Z66 Do not resuscitate
CPT/HCPCS: 36415; 70450; 72125; 80048; 82803; 84484; 85025; 85610; 85670; 85730; 93005; 93010; 94660; J1953; J2270; J2405